=== PATIENT | female | born 1960 | race Caucasian/White ===

== ENCOUNTER 2025-06-22 16:00 | Emergency (ER) | payer OTHER, SELFPAY ==
--- OUTSIDE RECORDS SUMMARY | 2025-05-26 11:15 | XMS_ITS | Encounter Summary ---
Author Organization [email or web address] Address [address], [place] [address] Care Team Providers Care Digital Media Planner Name Role Phone Dilcia Akins APRN, TUBE DRAWER Primary Care Provider + Reason for Visit * Reason Comments Skin Exam Presents for full cherelle dy skin cancer screening Concerns Not concerns but wan ts them removed. Two moles on the chest and one on the left anterior shoulder. Lesions on right breast and left upper back that get irritatedEfudex refilled in January. Used on two spots (one by glabella and one under nose) and both have resolved. Also used on scaly spot on lip. Spot is getting smaller but not resolving. Not tender.Continues with oral minoxidil. Denies adverse effects. Notices increased hair in multiple places. Encounter Details Date Type Department Care Team (Late st Contact Info) Description 05/26/2025 11:15 AM CDT Office Visit [place] [address] [address] [place] [phone] Ghazal Jimenez MD [address] [place], [place] [id number] Skin exam, screening for cancer (Primary Dx); History of nonmelanoma skin cancer; Sun-damaged skin; Seborrheic keratosis; Multiple nevi; Sebaceous hyperplasia; Androgenetic alopecia; Neoplasm of skin (HRC); Inflamed seborrheic keratosis; Actinic cheilitis Social History Tobacco Use Types Packs/Day Years Used Date Smoking Tobacco: Never Passive Smoke Exposure: Never Smokeless Tobacco: Never Alcohol Use Standard Drinks/Week Comments Yes 4 (1 standard drink = 0.6 oz pure alcohol) I have cut back on drinking and simetimes go a week or more PHQ-2 Answer Date Recorded PHQ-2 Score 0 01/25/2025 Comments No Sex and Gender Information Value Date Recorded Sex Assigned at Not on file Legal Sex Female 5:03 AM CDT Gender Identity Not on file Sexual Orientation Not on file Occupation Industry Job Start Date Job End Date Not on file Not on file Not on file Not on file documented as of this encounter Last Filed Vital Signs Vital Sign Reading Time Taken Comments Blood Pressure 143/76 05/26/2025 11:48 AM CDT Pulse 65 05/26/2025 11:48 AM CDT Temperature - - Respiratory Rate - - Oxygen Saturation - - Inhaled Oxygen Concentration - - Weight - - Height - - Body Mass Index - - documented in this encounter Patient Instructions * Patient Instructions* Jeanine Saldaña RN - 05/26/2025 11:15 AM CDT Care Instructions after a shave skin biopsy/removal When do I start changing the bandage on my wound site? Leave the original bandage/dressing in place for 24 to 48 hours. If you develop bleeding from the site, apply firm pressure directly over the bandage, using the heel of your hand, for [address] another bandage on top of the first one - don't keep removing and replacing dressings. NO PEEKING! Notify us if the bleeding still does not stop. How do I change the bandage on my wound? Clean the area once a day with warm soap and water. Gently pat dry the area. After the area has been cleaned and is dry, apply a small amount of petroleum jelly or Aquaphor healing ointment and apply a new bandage. We prefer that you do not use an antibacterial ointment (i.e. bacitracin, Neosporin) as many peopledevelop a hypersensitivity including a rash and even blistering related to these. Is it okay to shower after having a skin biopsy/removal? Showering is okay, but please do not soak in a bathtub, hot tub, or pool. This will slow the healing process and may create infection. When can I stop bandaging my wound? Continue the wound care process until the area is healed. Complete healing usually takes 2-4 weeks.Wounds heal best when kept moist, try not to let the area dry out. During this process you may see a white film develop over your wound and this is part of the normal healing process. Letting them open to air, drying out, and having a scab form actually causes wounds to take longer to heal. If yourskin is getting sensitive to the bandage, use gauze and paper tape. Can I exercise after having a skin biopsy/removal? Avoid exercising for 2 days. What signs or symptoms should I call the dermatology department about? Infection after a biopsy is not likely, but can occur. Mild amounts of redness, bruising, swelling,discomfort and a clear to yellowish to blood-tinged discharge are normal. Signs of Infection include: fever, increasing pain, blood blister, drainage of pus, and extreme heat from the site. Please call the clinic if you experience any of these symptoms. When will I receive my skin biopsy/removal results? Your skin biopsy specimen will be sent to our laboratory for processing. Your clinician will contact you with the results of this pathology report when it is available. Typically you will be contacted 7 to 14 days after your biopsy or procedure. Our pathology services will be listed separately on your bill. If you have further questions about the biopsy process or if you have not received your biopsy results within 2 weeks, please call the clinic. documented in this encounter Progress Notes * Ghazal Jimenez MD - 05/26/2025 11:15 AM CDT Images from the original note were not included. Problem List Dermatology Problems History of squamous cell carcinoma of skin Overview SCCis, mid central chest right of midline, s/p shave 04/24/2017 treated with Efudex History of actinic keratoses Overview Ak right lower leg biopsied 04/15/2024 HPI: Eddie Maurice is a 64 y.o. who was last seen in Dermatology July 2024 Today, the patient presents for / has the following concerns: Chief Complaint Patient presents with Skin Exam Presents for full body skin cancer screening Concerns Not concerns but wants them removed. Two moles on the chest and one on the left anterior shoulder. Lesions on right breast and left upper back that get irritated Efudex refilled in January. Used on two spots (one by glabella and one under nose) and both have resolved. Also used on scaly spot on lip. Spot is getting smaller but not resolving. Not tender. Continues with oral minoxidil. Denies adverse effects. Notices increased hair in multiple places. No questionnaires on file. Past Medical History: History of SCC as above. Actinic keratoses - cryotherapy, Efudex 5% cream. Efudex to face 01/2021. Efudex to upper chest, multiple areas reacted Lichenoid AK biopsied right lower leg posterior 03/2024- s/p efudex BID x 2 weeks ISK - cryotherapy. Milia - cosmetic extraction. Hair loss - oral minoxidil 0.625 mg daily. 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 Rare subtle changes compel clinical consideration of the possibility of ekgq-rfcftzzl-kntrhty pathology. 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 Family History: Mother with history of skin cancer, unspecified subtype. Social History: Spends a lot of time outdoors. Wears sunscreen SPF 70. Tans easily. 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 Medications: The patient has a current medication list which includes the following prescription(s): amoxicillin, b complex vitamins, fluorouracil, hydrocodone- acetaminophen, ibuprofen, minoxidil, and omeprazole. Allergies: The patient is allergic to latex, dyclonine hcl-benzethonium cl, lanolin, levofloxacin, and wound dressings. Physical Examination: General: well-appearing, no acute distress, alert and oriented Skin: Full body skin exam performed including the head, neck, chest, back, abdomen, arms, hands, legs, feet, external genitalia, and buttocks. Please see below for additional problem associated details of physical exam. Declined scalp exam today Findings, Assessment, and Plan: Skin Exam 1. SKIN EXAM, SCREENING FOR CANCER Generalized - skin check done today Counseled regarding sun protection, including sunscreen, limiting ultraviolet exposure, and monthlyself-skin exams / how to monitor the skin for concerning lesions. Advised to RTC as directed for skin cancer screenings, sooner if concerning lesions develop or existing lesions change. 2. HISTORY OF NONMELANOMA SKIN CANCER Generalized - well-healed scar(s) at the site(s) of previous non-melanoma skin cancer with no evidence of any residual or recurrent lesion No evidence of recurrence. Counseled regarding sun protection/sunscreen and avoidance, monthly self-skin exams and how to monitor the skin for concerning lesions. Should RTC if anything recurs at these sites. Recommend at least yearly, or as otherwise directed, Dermatology visits for a skin check, sooner if concerning lesions develop or existing lesions change. 3. SUN-DAMAGED SKIN Generalized - sun-exposed skin with diffuse sun-damage Recommended sunscreen and other sun protective measures 4. SEBORRHEIC KERATOSIS Generalized - well-demarcated, stuck-on keratotic papule(s) Benign, reassurance, no treatment needed. 5. MULTIPLE NEVI Generalized - well-demarcated, symmetric brown macules and/or papules, select examined with dermoscopy - right upper chest and right mid chest, 4 mm skin colored soft papule Reassured that these currently have a benign appearance. Reviewed how to monitor for changes and warning signs or symptoms of skin cancer. Should perform monthly self skin exams and return to clinic to have these reevaluated if they change, grow, or become symptomatic. Discussed management options for removal at patient request including shave removal or excision. Discussed that removal will result in a scar and that the patient would be trading a mole for a scar. Also there is risk of recurrence and the nevus can look atypical if it recurs. Removal may be considered cosmetic and not covered by insurance. Elected not to remove at this time. 6. SEBACEOUS HYPERPLASIA Left Malar Cheek Lateral - left lateral malar cheek, 4 mm yellowish papule (site of previous mole removal per patient) Benign, reassured. 7. ANDROGENETIC ALOPECIA Scalp - declined scalp exam today Discussed etiology and expectations. Continue on oral minoxidil dose of 1.25 mg daily Discussed this needs to be continued to maintain efficacy. Discussed potential adverse effects including hypertrichosis, lightheadedness, fluid retention/ankle swelling, tachycardia, weight gain, andheadaches. Advised to stop the medication and seek care if side effects develop. Blood pressured checked today 8. NEOPLASM OF SKIN (HRC) (3) Left Upper Back Lateral Shave removal (No CPT) Lesion diameter (cm): 0.5 Informed consent: discussed and consent obtained Anesthesia: the lesion was anesthetized in a standard fashion Anesthetic: 1% lidocaine w/ epinephrine 1-100,000 local infiltration Instrument used: flexible razor blade Hemostasis achieved with: electrodesiccation Outcome: patient tolerated procedure well Post-procedure details: wound care instructions given Additional details: Site cleansed with rubbing alcohol prior to anesthetic. Post procedure, plain vaseline and bandage applied. Specimen 1 - Surgical Path, Dermatology Clinical Impression: 5 mm soft pink papule consistent with irritated nevus Right Breast Medial Inferior Shave removal (No CPT) Lesion diameter (cm): 0.3 Informed consent: discussed and consent obtained Anesthesia: the lesion was anesthetized in a standard fashion Anesthetic: 1% lidocaine w/ epinephrine 1-100,000 local infiltration Instrument used: flexible razor blade Hemostasis achieved with: electrodesiccation Outcome: patient tolerated procedure well Post-procedure details: wound care instructions given Additional details: Site cleansed with rubbing alcohol prior to anesthetic. Post procedure, plain vaseline and bandage applied. Specimen 2 - Surgical Path, Dermatology Clinical Impression: 3 mm red papule consistent with irritated angioma Right Breast Superior Shave removal (No CPT) Lesion diameter (cm): 0.5 Informed consent: discussed and consent obtained Anesthesia: the lesion was anesthetized in a standard fashion Anesthetic: 1% lidocaine w/ epinephrine 1-100,000 local infiltration Instrument used: flexible razor blade Hemostasis achieved with: electrodesiccation Outcome: patient tolerated procedure well Post-procedure details: wound care instructions given Additional details: Site cleansed with rubbing alcohol prior to anesthetic. Post procedure, plain vaseline and bandage applied. Specimen 3 - Surgical Path, Dermatology Clinical Impression: 5 mm soft pink papule consistent with irritated nevus 9. INFLAMED SEBORRHEIC KERATOSIS (2) Left Lower Leg - Posterior, Left Lower Leg - Posterior Distal lateral - stuck-on keratotic papules with erythema c/w irritated seborrheic keratoses - treatment offered due to irritation and itch - treated with LN2 for 10 sec x 2 - pt tolerated procedure well - wound care instructions given Destruction of lesion (No CPT) - Left Lower Leg - Posterior, Left Lower Leg - Posterior Distal lateral Destruction method: cryotherapy Informed consent: discussed and consent obtained Lesion destroyed using liquid nitrogen: Yes Cryo cycles: treated with LN2 for 10 sec x 2. Outcome: patient tolerated procedure well with no complications Post-procedure details: wound care instructions given Additional details: Prior to the procedure, we discussed the risks, including but not limited to, of pain, scarring, swelling, blistering, hypopigmentation, potential recurrence, and possible need for further treatment. Verbal consent obtained. 10. ACTINIC CHEILITIS Mid Lower Vermilion Lip - 2 mm subtle scale. No induration or crusting Improving but not resolved with 10 days of fluorouracil/efudex Discussed options for cryotherapy vs repeat fluorouracil/efudex. Pt elected the latter. If this is tender, enlarging or bleeding or not continuing to improve, a biopsy may be needed. Will repeat treatment x 10 days as tolerated. RTC if worsening. Anticipatory guidance provided. Orders Placed This Encounter Surgical Path, Dermatology Shave removal (No CPT) Shave removal (No CPT) Shave removal (No CPT) Destruction of lesion (No CPT) Follow-up: Return to clinic in 12 months for full body skin exam, recheck, sooner for new concerns. See orders section of EMR for additional details of any orders placed at today's visit if applicable. Some pertinent information not listed here may be found in the Patient Instructions part of theencounter, particularly with regard to specific directions for use of medications and/or suggestions for OTC products. ADDENDUM: FINAL DIAGNOSIS Date Value Ref Range Status 05/26/2025 Final A. Skin, Left Upper Back Lateral, shave: - Neurofibroma B. Skin, Right Breast Medial Inferior, shave: - Benign Hemangioma C. Skin, Right Breast Superior, shave: - Neurofibroma Benign, may recur. No further treatment needed. documented in this encounter Plan of Treatment Upcoming Encounters Date Type Department Care Team (Late st Contact Info) Description 05/25/2026 11:30 AM CDT Appointment [place] [address] [place] [phone] Ghazal Jimenez MD [address] [place] [phone] documented as of this encounter Procedures Procedure Name Priority Date/Time Associated Diagnosis Comments DESTRUCTION OF LESION Routine 05/26/2025 11:41 AM CDT Inflamed seborrheic keratosis EPIDERMAL / DERMAL SHAVING Routine 05/26/2025 11:40 AM CDT Neoplasm of skin (HRC) EPIDERMAL / DERMAL SHAVING Routine 05/26/2025 11:39 AM CDT Neoplasm of skin (HRC) EPIDERMAL / DERMAL SHAVING Routine 05/26/2025 11:38 AM CDT Neoplasm of skin (HRC) SURGICAL PATHOLOGY, DERMATOLOGY Routine 05/26/2025 11:38 AM CDT Neoplasm of skin (HRC) documented in this encounter Results * Destruction of lesion (No CPT) (05/26/2025 11:41 AM CDT) Narrative EXTERNAL RESULTS - 05/26/2025 11:41 AM CDT Destruction method: cryotherapy Informed consent: discussed and consent obtained Lesion destroyed using liquid nitrogen: Yes Cryo cycles: treated with LN2 for 10 sec x 2. Outcome: patient tolerated procedure well with no complications Post-procedure details: wound care instructions given Additional details: Prior to the procedure, we discussed the risks, including but not limited to, of pain, scarring, swelling, blistering, hypopigmentation, potential recurrence, and possible need for further treatment. Verbal consent obtained. Result Zack Rowley MD DERM PROCEDURE OR DERABLES Final Result Performing Organization Address [facility] Phone Number EXTERNAL RESULTS * Shave removal (No CPT) (05/26/2025 11:40 AM CDT) Narrative EXTERNAL RESULTS - 05/26/2025 11:40 AM CDT Lesion diameter (cm): 0.5 Informed consent: discussed and consent obtained Anesthesia: the lesion was anesthetized in a standard fashion Anesthetic: 1% lidocaine w/ epinephrine 1-100,000 local infiltration Instrument used: flexible razor blade Hemostasis achieved with: electrodesiccation Outcome: patient tolerated procedure well Post-procedure details: wound care instructions given Additional details: Site cleansed with rubbing alcohol prior to anesthetic. Post procedure, plain vaseline and bandage applied. Result Zack Rowley MD DERM PROCEDURE OR DERABLES Final Result Performing Organization Address [facility] de Phone Number EXTERNAL RESULTS * Shave removal (No CPT) (05/26/2025 11:39 AM CDT) Narrative EXTERNAL RESULTS - 05/26/2025 11:39 AM CDT Lesion diameter (cm): 0.3 Informed consent: discussed and consent obtained Anesthesia: the lesion was anesthetized in a standard fashion Anesthetic: 1% lidocaine w/ epinephrine 1-100,000 local infiltration Instrument used: flexible razor blade Hemostasis achieved with: electrodesiccation Outcome: patient tolerated procedure well Post-procedure details: wound care instructions given Additional details: Site cleansed with rubbing alcohol prior to anesthetic. Post procedure, plain vaseline and bandage applied. Result Zack Rowley MD DERM PROCEDURE OR DERABLES Final Result Performing Organization Address City/State[facility] Phone Number EXTERNAL RESULTS * Shave removal (No CPT) (05/26/2025 11:38 AM CDT) Narrative EXTERNAL RESULTS - 05/26/2025 11:38 AM CDT Lesion diameter (cm): 0.5 Informed consent: discussed and consent obtained Anesthesia: the lesion was anesthetized in a standard fashion Anesthetic: 1% lidocaine w/ epinephrine 1-100,000 local infiltration Instrument used: flexible razor blade Hemostasis achieved with: electrodesiccation Outcome: patient tolerated procedure well Post-procedure details: wound care instructions given Additional details: Site cleansed with rubbing alcohol prior to anesthetic. Post procedure, plain vaseline and bandage applied. us Ghazal Rowley MD DERM PROCEDURE OR DERABLES Final Result Performing Organization Address [facility] Phone Number EXTERNAL RESULTS * Surgical Path, Dermatology (05/26/2025 11:38 AM CDT) Case Report Surgical Pathology Report Case: [id number] Authorizing Provider: Ghazal Jimenez Collected: 05/26/2025 Keyonna Rodriguez MD Ordering Location: [place] [address] Received: 05/26/2025 1310 Dermatology Pathologist: Brice Castillo MD Specimens: A) - Skin, Left Upper Back Lateral B) - Skin, Right Breast Medial Inferior C) - Skin, Right Breast Superior 05/31/2025 3:50 PM CDT [employer] [employer] [facility] 3800 DERMATOLOGY FINAL DIAGNOSIS A. Skin, Left Upper Back Lateral, shave: - Neurofibroma B. Skin, Right Breast Medial Inferior, shave: - Benign Hemangioma C. Skin, Right Breast Superior, shave: - Neurofibroma 05/31/2025 3:50 PM CDT [employer] [facility] 3800 DERMATOLOGY at 1550 CDT Clinical Information A: Clinical Impression: 5 mm soft pink papule consistent with irritated nevus B: Clinical Impression: 3 mm red papule consistent with irritated angioma C: Clinical Impression: 5 mm soft pink papule consistent with irritated nevus 05/31/2025 3:50 PM CDT [employer] [facility] 3800 DERMATOLOGY Microscopic Description Microscopic examination is performed. 05/31/2025 3:50 PM T [facility] 3800 DERMATOLOGY Technical Information A portion of the technical staining was performed at [facility], [address] [place] [address]. 05/31/2025 3:50 PM CDT [facility] 3800 DERMATOLOGY Gross Description A: Received in formalin, labeled with the patient's name and Skin, Left Upper Back Lateral is a 4 x 4 x 3 mm shave of skin. The specimen is marked with purple ink, bisected, and submitted entirely in one cassette. B: Received in formalin, labeled with the patient's name and Skin, Right Breast Medial Inferior is a 2 x 2 x 1 mm shave of skin. The specimen is marked with blue ink and submitted entirely in one cassette. C: Received in formalin, labeled with the patient's name and Skin, Right Breast Superior is a 3 x 3 x 1 mm shave of skin. The specimen is marked with black ink and submitted entirely in one cassette. TV 05/31/2025 3:50 PM T [facility] 3800 DERMATOLOGY Embedded Images 05/31/2025 3:50 PM T [facility] 3800 DERMATOLOGY Skin (Skin) 05/26/2025 11:3 8 AM CDT 05/26/2025 1:10 PM CDT Comment:Clinical Impression: 5 mm soft pink papule consistent with irritated nevus Skin structure (body structure) (Skin) 05/26/2025 11:39 AM CDT 05/26/2025 1:10 PM CDT Comment:Clinical Impression: 3 mm red papule consistent with irritated angioma Skin structure (body structure) (Skin) 05/26/2025 11:40 AM CDT 05/26/2025 1:10 PM CDT Comment:Clinical Impression: 5 mm soft pink papule consistent with irritated nevus Ghazal Rowley MD LAB PATHOLOGY F inal Result [facility] [employer] [facility] 3800 DERMATOLOGY [address] [place] [address], [facility] documented in this encounter Visit Diagnoses Diagnosis Skin exam, screening for cancer- Primary Screening for malignant neoplasm of the skin History of nonmelanoma skin cancer Personal history of other malignant neoplasm of skin Sun-damaged skin Other chronic dermatitis due to solar radiation Seborrheic keratosis Other seborrheic keratosis Multiple nevi Benign neoplasm of skin, site unspecified Sebaceous hyperplasia Other specified disease of sebaceous glands Androgenetic alopecia Other alopecia Neoplasm of skin (HRC) Neoplasm of unspecified nature of bone, soft tissue, and skin Inflamed seborrheic keratosis Actinic cheilitis Acute dermatitis due to solar radiation documented in this encounter Care Teams Digital Media Planner Relationship Specialty Start Date End Date Dilcia Akins, [employer] RET[employer]OFIT INSTALLER, TUBE DRAWER [address] [place] [address] PCP - General Nurse Practitioner 08/18/18 documented as of this encounter
--- OUTSIDE RECORDS SUMMARY | 2025-06-12 19:10 | XMS_ITS | Encounter Summary ---
Author Organization [facility] Address [address], [place] [address] Care Team Providers Care Director Of Sustainability Programs Name Role Phone Dilcia Akins APRN, WARP COILER Primary Care Provider + Reason for Visit * Reason Comments QUESTIONS, GENERAL Entered automaticall y based on patient selection in [employer]. Encounter Details Date Type Department Care Team (Late st Contact Info) Description 06/12/2025 7:10 PM CDT E-Visit [address] [address] Dilcia Akins, ALLAN, WARP COILER [address] [place] [id number] Chief Comp: QUESTIONS, GENERAL Social History Tobacco Use Types Packs/Day Years [...] on file documented as of this encounter Plan of Treatment Upcoming Encounters Date Type Department Care Team (Late st Contact Info) Description 05/25/2026 11:30 AM CDT Appointment [facility] [address] Derm[address]ology [address] [place] [address] Ghazal Jimenez MD [address] [place] [address] documented as of this encounter Visit Diagnoses Not on filedocumented in this encounter Care Teams Director Of Sustainability Programs Relationship Specialty Start Date End Date Dilcia Akins, COOKER MEAL, WARP COILER [address] [place] [id number] PCP - General Nurse Practitioner 08/18/18 documented as of this encounter
[2025-06-22 16:07] VITALS: BP 178/94; PULSE 75; RESP 16; TEMP 36.4; O2SAT 98; BMI 19.9
--- NOTE | 2025-06-22 16:43 | ED_ITS ---
HPI - Back Pain/Injury General Date Seen: 06/22/25 Chief Complaint: Back Injury/Pain Stated Complaint: Back Pain Time Seen by Provider: 06/22/25 16:08 Source: patient Mode of arrival: EMS Limitations: no limitations History of Present Illness HPI Narrative: Patient is a 64-year-old female presenting to the emergency department for back pain. Has a history of mild herniated discs and chronic back discomfort. States she was outside and bending down to feed the animals. When she stood back up she felt her back go out. She has pain throughout her mid back all across her back at about the T11 region. Has never had back pain this bad before. States it was so bad that she was stuck in bed all day. This happened around 09:00. She states the pain is tolerable when she lays down or stands up but with any movement she has worsening pain. She was unable to get out of bed due to the pain and did not know what to do so she called EMS. When EMS arrived they gave her a dose of Toradol IV. This made her feel much better she states at rest now the pain is a 1/10. Is able to sit up in bed but does have quite a bit of pain with that. Does state the pain is still better than prior to the Toradol. No other injuries noted. Denies saddle anesthesia, fevers, IV drug use, urinary or bowel incontinence, urinary retention. Related Data Home Medications ?Medication ?Instructions ?Recorded ?Confirmed minoxidil .ROUTE 06/22/25 Allergies Allergy/AdvReac Type Severity Reaction Status Date / Time No Known Drug Allergies Allergy Verified 06/22/25 16:07 Review of Systems Narrative: Pertinent systems reviewed and were negative unless stated in HPI PFSH PFSH Social History Smoking Status: Never smoker How often do you have a drink containing alcohol: 4 or more times a week How many standard drinks containing alcohol do you have on a typical day: 1 or 2 How often do you have six or more drinks on one occasion: Never AUDIT-C Alcohol total score: 4 Non-prescribed substance use: denies use Exam Narrative: Exam Narrative: Const: Well-nourished, Well-developed, in monitor distress Eyes: PERRL, no conjunctival injection, and symmetrical lids HENT: Atraumatic external nose and ears. Moist mucous membranes. Neck: Symmetric, trachea midline, No thyromegaly. CVS: RRR, No murmurs or gallops. Peripheral pulses 2+ and equal in all extremities RESP: Unlabored respiratory effort. Clear to auscultation bilaterally. GI: Nontender/Nondistended, No rebound or guarding. MSK:Extremities w/o deformity, pain if she lifts her lower extremities or tries to move her back. Some tenderness noted across her back around the T11 worse on the left side. Skin: Warm, Dry. No rashes or lesions. Neuro: Normal Muscle tone, No focal neurological deficits. Psych: Awake, Alert, & Oriented x3. Appropriate mood and affect. Const: Vital Signs, click to edit/add: Vital Signs - 24 hr 06/22/25 16:07 Temperature 97.5 F L Pulse Rate [Pulse Oximeter] 75 Respiratory Rate 16 Blood Pressure [Ri ght Upper Arm] 178/94 H Pulse Oximetry 98 Oxygen Delivery Me thod Room Air Course Vital Signs Vital signs: Initial Vital Signs Temperature 97.5 F L 06/22/25 16:07 Temperature Source Temporal Artery Scan 06/22/25 16:07 Pulse Rate 75 06/22/25 16:07 Respiratory Rate 16 06/22/25 16:07 Blood Pressure 178/94 H 06/22/25 16:07 Blood Pressure Mean 122 H 06/22/25 16:07 Blood Pressure Position Supine 06/22/25 16:07 Pulse Oximetry 98 06/22/25 16:07 Oxygen Delivery Method Room Air 06/22/25 16:07 Vital Signs Temperature 97.5 F L 06/22/25 16:07 Pulse Rate 75 06/22/25 16:07 Respiratory Rate 16 06/22/25 16:07 Blood Pressure 178/94 H 06/22/25 16:07 Pulse Oximetry 98 06/22/25 16:07 Oxygen Delivery Method Room Air 06/22/25 16:07 Temperature 97.5 F L 06/22/25 16:07 Pulse Rate 75 06/22/25 16:07 Respiratory Rate 16 06/22/25 16:07 Blood Pressure 178/94 H 06/22/25 16:07 Pulse Oximetry 98 06/22/25 16:07 Oxygen Delivery Method Room Air 06/22/25 16:07 MDM - Back Pain/Injury MDM Narrative Medical decision making narrative: Patient is 64-year-old female presenting for back pain. No red flag symptoms of cauda equina. The pain started with movement in seems most likely musculoskeletal but with her initially description there was some thought that could be a kidney stone. After shared decision-making she does not think it is a kidney stone is not want a CT scan. This seems reasonable. Also declined x- rays at this time as she states she is very active and does not believe she got compression fracture. She believes she strained a muscle. She is doing much better after the Toradol. I did offer morphine for pain control but she declined. She feels comfortable going home and I will prescribe her Toradol, Flexeril, prednisone for her back pain. She is agreeable to this plan. Discharge Plan Discharge Clinical Impression: Strain of lumbar region Qualifiers: Encounter type: initial encounter Qualified Code(s): S39.012A - Strain of muscle, fascia and tendon of lower back, initial encounter Patient Disposition: Home, Self-Care Condition: Stable Instructions: Low Back Strain (ED), P.R.I.C.E. Treatment (ED) Additional Instructions: Take the Flexeril, Toradol, prednisone for your back pain. While using Toradol do not use other NSAIDs such as naproxen or ibuprofen. You can also take Tylenol for your pain. Recommend following up with your primary care provider if back pain is not improving. If you developed urinary retention or numbness of your butt in the region that would be sitting on a saddle please return for re-evaluation Prescriptions: No Action minoxidil .ROUTE Stand Alone Forms: [employer] Info Instructions
--- OUTSIDE RECORDS SUMMARY | 2025-06-22 17:00 | XMS_ITS | Clinical Summary ---
Author Organization [facility] Address [address] [place] [address] Care Team Providers Care Platinum And Palladium Kettle Tender Name Role Phone No Ref-Primary, Physician Primary Care Provider Allergies Active Allergy Reactions Criticality Noted Date Comments Adhesive Tape Rash Low 10/02/2006 Most bandaids are okay- paper tape is okay also- other tapes she has blisters from Skin was red and blistered Dyclonine Hcl-Benzethonium Cl Itching,Rash Low 02/02/2013 Lanolin Itching,Rash 10/02/2006 Latex 02/02/2013 Levofloxacin Rash Low 12/29/2007 PN: LW Reaction: rash,dizziness PN: LW Reaction: rash,dizziness No Clinical Screening - See Comments 12/09/2008 PN: LW Reaction: use paper tape only (blisters from other Medications Ibuprofen (ADVIL PO) Active oseltamivir (TAMIFLU) 75 MG capsuleIndicati ons:Influenza A Take 1 capsule (75 mg) by mouth 2 times daily for 5 days 10 capsule 0 4 Active tobramycin (TOBREX) 0.3 % ophthalmic solutionIndicat ions:Hordeolum externum of right upper eyelid Apply 1 drop to eye every 4 hours 1 Bottle 0 Active Additional Information Patient not taking.Reported on 07/17/2020 cephALEXin (KEFLEX) 500 MG capsuleIndicati ons:Hordeolum externum of right upper eyelid Take 1 capsule (500 mg) by mouth 3 times daily 30 capsule 0 Active Additional Information Patient not taking.Reported on 07/17/2020 methylPREDNISol one (MEDROL DOSEPAK) 4 MG tablet therapy packIndications :Rash Follow Package Directions 21 tablet 0 Active Additional Information Patient not taking.Reported on 04/22/2024 minoxidil (LONITEN) 2.5 MG tablet Take one-fourth of a tablet daily for hair loss 4 Active Active Problems No known active problems Social History Tobacco Use Types Packs/Day Years Used Date Smoking Tobacco: Never Smokeless Tobacco: Never Tobacco Cessation:Counseling Given: No Alcohol Use Standard Drinks/Week Comments Not Asked 0 (1 standard drink = 0.6 oz pur e alcohol) Adolescent Education Answer Date Record ed Getting School Help Needed Not on file 04/22 Comments No Sex and Gender Information Value Date Recorded Sex Assigned at Not on file Legal Sex Female 3:21 AM POCKET CREASER Gender Identity Not on file Sexual Orientation Not on file Last Filed Vital Signs Vital Sign Reading Time Taken Comments Blood Pressure 137/86 04/22/2024 12:48 PM CDT Pulse 80 04/22/2024 12:48 PM CDT Temperature 36.4 C (97.6 F) 04/22/2024 12:48 PM CDT Respiratory Rate 16 07/17/2020 4:11 PM CDT Oxygen Saturation 97% 04/22/2024 12:48 PM CDT Inhaled Oxygen Concentration - - Weight 74.8 kg (165 lb) 07/17/2020 4:11 PM CDT Height 177.8 cm (5' 10) 06/29/2020 9:09 AM CDT Body Mass Index 23.68 06/29/2020 9:09 AM CDT Plan of Treatment Health Maintenance Due Date Last Done Comments ADVANCE CARE PLANNING 1960 ANNUAL REVIEW OF HM ORDERS 1960 FIT 1960 FLEX SIG 1960 sDNA (Cologuard) 1960 COLONOSCOPY 1970 HIV SCREENING 1975 HEPATITIS C SCREENING 1978 DTAP/TDAP/TD VACCINE (1 - Tdap) 1985 LIPID 2000 PNEUMOCOCCAL VACCINE 50+ YEARS (1 of 1 - PCV) 2010 ZOSTER VACCINE (1 of 2) 2010 YEARLY PREVENTIVE VISIT 06/25/2020 06/25/2019 PAP 06/25/2022 06/25/2019 DIABETES SCREENING 11/05/2022 11/05/2019 COVID-19 VACCINE ( season) 2024 12/14/2021, 03/21/2021, 03/02/2021 PHQ-2 (once per calendar year) 2024 MAMMO SCREENING 12/06/2024 12/06/2022, 01/0 05/2023, 08/15/2021, Additional history exists INFLUENZA VACCINE (#1) 2025 COLORECTAL CANCER SCREENING 11/05/2026 CT COLONOGRAPHY 11/05/2026 11/05/2021 RSV VACCINE (1 - 1-dose 75+ series) 2035 HPV VACCINE Aged Out No longer eligi ble based on patient's age to complete this topic MENINGITIS VACCINE Aged Out No longer eligible based on patient's age to complete this topic Procedures Procedure Name Priority Date/Time Associated Diagnosis Comments BASIC METABOLIC PANEL Routine 11/05/2019 4:38 PM POCKET CREASER Cough HC MAMMOGRAM, DIAGNOSTIC BILATERAL Routine 06/23/2007 10:16 AM CDT from Last 3 Months or Most Recently Relevant to Health Maintenance Results * (ABNORMAL) Basic metabolic panel (11/05/2019 4:38 PM POCKET CREASER) Sodium 139 133 - 144 mmol/L 11/05/2019 5:04 PM [facility] Potassium 4.6 3.4 - 5.3 mmol/L 11/05/2019 5:04 PM [facility] Chloride 106 94 - 109 mmol/L 11/05/2019 5:04 PM [facility] Carbon Dioxide 31 20 - 32 mmol/L 11/05/2019 5:09 PM [facility] Anion Gap 2(L) 3 - 14 mmol/L 11/05/2019 5:09 PM [facility] Glucose 103(H) 70 - 99 mg/dL 11/05/2019 5:09 PM [facility] Urea Nitrogen 16 7 - 30 mg/dL 11/05/2019 5:09 PM [facility] Creatinine 0.85 0.52 - 1.04 mg/dL 11/05/2019 5:09 PM POCKET CREASER [facility] GFR Estimate 75 >60 mL/min/{1 .73_m2} 11/05/2019 5:09 PM POCKET CREASER [facility] Comment: Non GFR Calc Starting 11/17/2018, serum creatinine based estimated GFR (eGFR) will be calculated using the Chronic Kidney Disease Epidemiology Collaboration (CKD-EPI) equation. GFR Estimate If Black 87 >60 mL/min/{1 .73_m2} 11/05/2019 5:09 PM POCKET CREASER [facility] Comment: GFR Calc Starting 11/17/2018, serum creatinine based estimated GFR (eGFR) will be calculated using the Chronic Kidney Disease Epidemiology Collaboration (CKD-EPI) equation. 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 This represents her first mammographic followup after surgery. She has no current clinical symptoms. FINDINGS: Standard and implant displaced mammographic views were obtained. Bilateral silicone subglandular implants remain in place and these implants partially obscure the underlying parenchyma which is heterogeneously dense. There is post lumpectomy scarring in the lateral right breast. Biopsy marker in the right medial breast marking the site of a previous benign ultrasound guided biopsy. A focal asymmetric density is seen in the medial right breast on the implant displaced CC view. This was further evaluated with spot compression technique which shows no persistent mammographic abnormality. The appearance is unchanged compared with previous mammograms dating back to 04/28/2003. The left breast is unremarkable and unchanged. There is no mammographic finding for malignancy in either breast. Targeted ultrasound of the medial and inferior right breast was performed and I personally scanned the patient. No sonographic abnormality is identified. IMPRESSION: ACR BI-RADS category 2, benign findings. 1. Postoperative changes in the right breast. No evidence for residual or recurrent malignancy. 2. Recommend 6 month followup right diagnostic mammogram since this is a new baseline after surgery. Clarissa Schmidt MD SPECIAL IMAGING STUDIES Edite d from Last 3 Months or Most Recently Relevant to Health Maintenance Insurance [employer] Care Teams Platinum And Palladium Kettle Tender Relationship Specialty Start Date End Date No Ref-Primary, Physician PCP - General 11/05/19
--- OUTSIDE RECORDS SUMMARY | 2025-06-22 17:00 | XMS_ITS | Encounter Summary ---
Author Organization [facility] Address [address] [address] Care Team Providers Care Web Master Name Role Phone Dilcia Akins APRN, COMMUNICATIONS SUPERVISOR Primary Care Provider + Encounter Details Date Type Department Care Team (Late st Contact Info) Description 05/20/2025 Results Follow-Up Endoscopy at [facility] at [address] [place] [address] Jinny Nelson MD [address] [place] [address] [phone] [place] [address] Social History Tobacco Use Types Packs/Day Years [...] on file documented as of this encounter Progress Notes * Jinny Nelson MD - 05/20/2025 12:12 PM CDT Colonoscopy 2 yrs, f/u polyps With propofol documented in this encounter Plan of Treatment Upcoming Encounters Date Type Department Care Team (Late st Contact Info) Description 05/25/2026 11:30 AM CDT Appointment [place] [address] [place] [id number] Ghazal Jimenez MD [address] [place] [address] documented as of this encounter Visit Diagnoses Not on filedocumented in this encounter Care Teams Web Master Relationship Specialty Start Date End Date Dilcia Akins, ALLAN, COMMUNICATIONS SUPERVISOR [address] [facility] [address] PCP - General Nurse Practitioner 08/18/18 documented as of this encounter
--- OUTSIDE RECORDS SUMMARY | 2025-06-22 17:00 | XMS_ITS | Encounter Summary ---
Author Organization [facility] Address [address], [place] [address] Care Team Providers Care Organization Development Consultant Name Role Phone Dilcia Akins APRN, GLASS FINISHER Primary Care Provider + Encounter Details Date Type Department Care Team (Late st Contact Info) Description 05/31/2025 Results Follow-Up [place] [address] [place] [phone] [place] [address] [place] [address] [phone] Social History Tobacco Use Types Packs/Day Years [...] Encounters Date Type Department Care Team (Late Contact Info) Description 05/25/2026 11:30 AM CDT Appointment [place] [address] [place] [phone] Ghazal Jimenez MD [address] [place], [place] [phone] documented as of this encounter Visit Diagnoses Not on filedocumented in this encounter Care Teams Organization Development Consultant Relationship Specialty Start Date End Date Dilcia Akins, RISK AND INSURANCE CONSULTANT, GLASS FINISHER [address] [place] [address] PCP - General Nurse Practitioner 08/18/18 documented as of this encounter
--- OUTSIDE RECORDS SUMMARY | 2025-06-22 17:00 | XMS_ITS | Encounter Summary ---
Author Organization [email or web address] Address [address], [place] [address] Care Team Providers Care Cashier Manager Name Role Phone Dilcia Akins APRN, OPERATIONS AGENT Primary Care Provider + Reason for Visit * Reason Onset Date Comments Refill minoxidil (LONIT EN) 2.5 MG tablet [Pharmacy Med Name: MINOXIDIL 2.5MG TABLETS] FYI 06/09/2025 Unable to Refill Medication 06/09/2025 Encounter Details Date Type Department Care Team (Late st Contact Info) Description 06/09/2025 Refill [place] [address] [address] [place], [place] [phone] Ghazal Nichole MD [address] [place], [place] [phone] Refill (minoxidil (LONITEN) 2.5 MG tablet [Pharmacy Med Name: MINOXIDIL 2.5MG TABLETS]); FYI; Unable to Refill Medication Social History Tobacco Use Types Packs/Day Years [...] on file documented as of this encounter Nursing Notes * Yadi Metz RN - 06/09/2025 8:13 AM CDT Refill Request Denied: Requested Prescriptions Pending Prescriptions Disp Refills minoxidil (LONITEN) 2.5 MG tablet [Pharmacy Med Name: MINOXIDIL 2.5MG TABLETS] 48 Tablet Sig: TAKE 1/2 TABLET BY MOUTH DAILY FOR HAIR LOSS Action taken by Triage: Refill denied per protocol. Reason not refillable: medication was sent on 05/26/25 with 3 refills. Last Visit Maximum visits displayed: 1 Date Type Department Provider Description 05/26/2025 Office Visit [place] [address] [address] Ghazal Rowley MD Skin exam, screening for cancer (Primary Dx); History of no... Follow-up interval per last visit note: 12 months Date(s) of failed/cancelled Derm appt: n/a Future Dermatology Appointments Provider Department Center 05/25/2026 11:30 AM Ghazal Nichole MD [place] [address] Derm[address] PN [id number] * Lynngallitoquyen Claudinegabrielasuze Xrwcomm - 06/09/2025 3:35 AM CDT minoxidil (LONITEN) 2.5 MG tablet [Pharmacy Med Name: MINOXIDIL 2.5MG TABLETS] Medication started: 08/18/2023 Last ordered by GHAZAL NICHOLE A: 05/26/2025 (14 days ago) QTY: 48, Refills: 3, Sig: take one-half of a tablet daily for hair loss (changed) -> Unable to determine if sig has changed, review required. -> Refill x 12 months (until due for an office visit) -> Calculate the quantity and number of refills manually. Last qualifying visit: 05/26/2025 (with GHAZAL NICHOLE) Next scheduled visit: 05/25/2026 (with GHAZAL NICHOLE) [employer] Emb[employer]ded Refills, Reference: [id number], 06/09/2025 3:35:46 AM CDT, Pool: [facility] ([id number]) documented in this encounter Plan of Treatment Upcoming Encounters Date Type Department Care Team (Late st Contact Info) Description 05/25/2026 11:30 AM CDT Appointment [place] [address] [place] [phone] Ghazal Nichole MD [address] [place] [address] documented as of this encounter Visit Diagnoses Not on filedocumented in this encounter Care Teams Cashier Manager Relationship Specialty Start Date End Date Dilcia Akins, MAID HOUSEKEEPER, OPERATIONS AGENT [address] [place], [place] [id number] PCP - General Nurse Practitioner 08/18/18 documented as of this encounter
--- OUTSIDE RECORDS SUMMARY | 2025-06-22 17:01 | XMS_ITS | Encounter Summary ---
Author Organization [employer] Address [address], [place] [address] Care Team Providers Care Erector Operator Name Role Phone Dilcia Akins APRN, RUBBER TUBING SPLICER Primary Care Provider + Reason for Visit * Reason Comments VISION, PROBLEM Vision changes Referral Encounter Details Date Type Department Care Team (Late st Contact Info) Description 04/06/2025 Telephone [facility] [address] Op[address]mology [address] [place] [address] Self-Referral, Patient, [place] [address] VISION, PROBLEM (Vision changes /); Referral Social History Tobacco Use Types Packs/Day Years [...] as of this encounter Nursing Notes * Noemi Cavanaugh - 04/07/2025 7:54 AM CDT LMX1- pt has referral for Vision changes - ok to book con2 today for pt if she calls back * Tamika Perales - 04/06/2025 3:56 PM CDT Pt has an emergent referral for Vision changes and would like to schedule. documented in this encounter Plan of Treatment Upcoming Encounters Date Type Department Care Team (Late st Contact Info) Description 05/25/2026 11:30 AM CDT Appointment [place] [address] [place] [phone] Ghazal Jimenez MD [address] [place] [address] documented as of this encounter Visit Diagnoses Not on filedocumented in this encounter Care Teams Erector Operator Relationship Specialty Start Date End Date Dilcia Akins, CLINICAL APPLICATIONS SPECIALIST, RUBBER TUBING SPLICER [address] [place] [address] PCP - General Nurse Practitioner 08/18/18 documented as of this encounter
--- OUTSIDE RECORDS SUMMARY | 2025-06-22 17:01 | XMS_ITS | Clinical Summary ---
Author Organization [facility] Address [address] [address] Care Team Providers Care Flaker Tender Name Role Phone Dilcia Akins APRN, [employer] Primary Care Provider + Source Comments You are receiving this document as you are listed as the primary care provider,follow-up provider, or the patient has been referred to you for consultation.This is in compliance with the Medicare and[facility] EHR Incentive Program,which states Providers who transition their patient to another setting of careor provider of care or refers their patient to another provider of care shouldprovide summary care record for each transition of care or referral. [employer] Allergies Active Allergy Reactions Criticality Noted Date Comments Dyclonine Hcl-Benzethonium Cl Itching 02/02/2013 Lanolin 12/09/2008 Latex 02/02/2013 Levofloxacin 12/29/2007 PN: LW Reaction: rash,dizziness Wound Dressings 12/09/2008 PN: LW Reaction: use paper tape only (blisters from other Medications B Complex Vitamins (VITAMIN B COMPLEX OR) Take 1 tablet by mouth daily (every 24 hours). 9 Active Ibuprofen (ADVIL) 200 MG capsule Take 1 Capsule by mouth every 6 hours as needed for Pain. Active omeprazole (PRILOSEC) 10 MG capsule Take 1 Capsule (10 mg) by mouth daily. Take 1 hour before a meal. Active fluorouracil (EFUDEX) 5 % cream Apply topically to face twice a day for up to 2 weeks as tolerated. Wash hands after applying. Avoid sun. 40 g 1 5 Active amoxicillin (AMOXIL) 500 MG capsule Take 1 Capsule (500 mg) by mouth three times a day. 5 Active HYDROcodone-ryanne taminophen (NORCO) 5-325 MG tablet Take 1 Tablet by mouth every 6 hours as needed. 5 Active minoxidil (LONITEN) 2.5 MG tablet Take one-half of a tablet daily for hair loss 48 Tablet 3 5 Active minoxidil (LONITEN) 2.5 MG tablet Take one-half of a tablet daily for hair loss 48 Tablet 3 4 05/26/20 25 Discontinu ed(*Med change OR same med OR reorder, new dose/direc tions) Active Problems Problem Noted Date Diagnosed Date History of actinic keratoses 04/29/2024 Overview (04/29/2024): Ak right lower leg biopsied 04/15/2024 Collagenous colitis 01/22/2022 History of colonic polyps 01/22/2022 Overview (08/31/2024): Next colonoscopy 01/2025 - The next procedure should start with an UGI endoscope - Next procedure with propofol by anesthesia. IMO Replacements 08/31/2024 H/O diverticulitis of colon 09/24/2021 Posttraumatic stress disorder 09/03/2021 Overview (09/03/2021): Sees a therapist History of squamous cell carcinoma of skin 10/16 Overview (04/14/2024): SCCis, mid central chest right of midline, s/p shave 04/24/2017 treated with Efudex Liver lesion, left lobe 12/08/2015 Solitary pulmonary nodule 12/06/2015 Overview (07/05/2016): 8 mm Left upper lung. On CT chest 02/26/2013. Stable on 11/30/2015 CXR. History of breast cancer 02/26/2013 Overview (07/23/2017): History of breast cancer 2007 right breast lumpectomy, radiation Resolved Problems Problem Noted Date Diagnosed Date Resolved Date High blood pressure 12/28/2020 09/03/20 21 Encounters Date Type Department Care Team Description 06/12/2025 7:10 PM CDT E-Visit [facility] [address] [place] [address] Dilcia Akins, CENTER REP, [employer] Chief Comp: QUESTIONS, GENERAL 06/09/2025 Refill [place] [address] [place] [address] Ghazal Jimenez MD Refill (minoxidil (LONITEN) 2.5 MG tablet [Pharmacy Med Name: MINOXIDIL 2.5MG TABLETS]); FYI; Unable to Refill Medication 05/31/2025 Results Follow-Up [address] [address] Ghazal Jimenez MD 05/26/2025 11:15 AM CDT Office Visit [address] [address] Ghazal Jimenez MD Skin exam, screening for cancer (Primary Dx); History of nonmelanoma skin cancer; Sun-damaged skin; Seborrheic keratosis; Multiple nevi; Sebaceous hyperplasia; Androgenetic alopecia; Neoplasm of skin (HRC); Inflamed seborrheic keratosis; Actinic cheilitis 05/20/2025 Results Follow-Up Endoscopy at [facility] at [address] [place] [address] Jinny Nelson MD 05/04/2025 7:50 PM CDT E-Visit [facility] [address] [place] [address] Dilcia Akins, ALLAN, [employer]EE Dx: Polyp of colon, unspecified part of colon, unspecified type (Primary Dx) 04/28/2025 12:[address] [facility] [address] [place] [address] [place] [address] Dilcia Akins, ALLAN, [employer] Vision changes 04/28/2025 12:[address] PM [address] Procedure [facility] [address] [place] [address] [place] [address] Dilcia Akins, ALLAN, [employer]EE Vision changes 04/28/2025 11:30 AM CDT [address] [facility] [address] [address] [place] [address] [place] [phone] Dilcia Akins, ALLAN, [employer]EE Vision changes 04/20/2025 10:28 AM CDT Anesthesia Event Endoscopy at [facility] at [address] [place] [address] Howie Cali MD 04/20/2025 9:12 AM CDT - 04/20/2025 11:59 PM CDT Hospital Encounter Endoscopy at [facility] at [address] [place] [address] Jinny Nelson MD Bertram, Lawrence J, MD Polyp of colon, unspecified part of colon, unspecified type Discharge Disposition: Home 04/11/2025 Notes/Orders [facility] at [address] [place] [address] Jinny Nelson MD 04/06/2025 11:20 AM CDT Telemedicine [address] [address] Dilcia Akins, ALLAN, [employer] Vision changes (Primary Dx); Claustrophobia (HRC); Subcortical microvascular ischemic occlusive disease 04/06/2025 Telephone [facility] [address] Ophthalmology [address] [facility] [place] [address] Self-Referral, Patient, MD VISION, PROBLEM (Vision changes /); Referral 04/01/2025 2:20 PM CDT E-Visit [address] [address] Dilcia Akins, CENTER REP, [employer] Chief Comp: QUESTIONS, GENERAL from Last 3 Months Immunizations Immunization Administration Dates Next Due Pfizer Monovalent 12+ Purple Top 12/14/2021,03/02,03/02/2021 Family History Medical History Relation Name Comments Cancer Father Freddy johnson of pancrea tic cancer Cancer, Pancreatic Father Freddy johnson Stroke Mother Estefany Paiz Diabetes Brother 1 Freddy Johnson Diabetes Brother 2 Freddy Johnson Anesthesia Reaction Sister Ashanti Gustafson nausea Cancer Sister Ashanti Ray Cancer, Breast Sister Ashanti Ray 54 Relation Name Status Comments Father Freddy johnson Mother Estefany Paiz Brother 1 Freddy Johnson Brother 2 Freddy Johnson Alive Sister Ashanti Gustafson Social History Tobacco Use Types Packs/Day Years Used Date Smoking Tobacco: Never Passive Smoke Exposure: Never Smokeless Tobacco: Never Tobacco Cessation:Counseling Given: Not Answered Alcohol Use Standard Drinks/Week Comments Yes 4 [...] file Not on file Not on file Last Filed Vital Signs Vital Sign Reading Time Taken Comments Blood Pressure 143/76 05/26/2025 11:48 AM CDT Pulse 65 05/26/2025 11:48 AM CDT Temperature 37 C (98.6 F) 04/20/2025 11:26 AM CDT Respiratory Rate 16 04/20/2025 11:30 AM CDT Oxygen Saturation 100% 04/20/2025 11:30 AM CDT Inhaled Oxygen Concentration - - Weight 64.9 kg (143 lb) 04/20/2025 9:22 AM CDT Height 180.3 cm (5' 11) 04/20/2025 9:22 AM CDT Body Mass Index 19.94 04/20/2025 9:22 AM CDT Plan of Treatment Upcoming Encounters Date Type Department Care Team (Late st Contact Info) Description 05/25/2026 11:30 AM CDT Appointment [facility] [address] Dermatology [address] [place] [address] Ghazal Jimenez MD [address] [place] [address] Health Maintenance Due Date Last Done Comments DTaP/Tdap/Td Vaccine (1 - Tdap) 1979 Pneumococcal Vaccine 50+ Yrs (1 of 1 - PCV) 2010 Zoster/Shingles Vaccine (1 of 2) 2010 Adult Preventive Visit 06/25/2020 06/25/2019 Cervical Cancer Screening 06/25/20242018, 06/25/2019, 02/15/2014 Cholesterol 06/25/2024 06/25/2019 COVID-19 Vaccine ( season) 2024 12/14/2021, 03/21/2021, 03/02/2021 Mammogram 05/26/2025 05/26/2024, 05/2023, 12/06/2022, Additional history exists Influenza Vaccine (#1) 2025 Colonoscopy 04/20/2027 04/20/2025, 01/01, 07/13/2015 (Completed) RSV Vaccine (1 - 1-dose 75+ series) 2035 HIV Screening (Preventive Services) Completed 06/25/2019 (Completed) Hep C Screening (Preventive Services) Completed 06/25/2019 (Completed) HepA Vaccine Aged Out No longer eligi ble based on patient's age to complete this topic HepB Vaccine Aged Out No longer eligi ble based on patient's age to complete this topic Hib Vaccine Aged Out No longer eligi ble based on patient's age to complete this topic IPV (Polio) Vaccine Aged Out No longe r eligible based on patient's age to complete this topic MCV4 Vaccine Aged Out No longer eligi ble based on patient's age to complete this topic Meningococcal B Vaccine Aged Out No l onger eligible based on patient's age to complete [...] 11:38 AM CDT Neoplasm of skin (HRC) MR ANGIO NECK W/WO IV CONT STAT 04/28/2025 12:07 PM CDT Vision changes MR BRAIN W/WO IV CONT STAT 04/28/2025 12:06 PM CDT Vision changes MR ANGIO HEAD WO IV CONT STAT 04/28/2025 11:19 AM CDT Vision changes SURGICAL PATHOLOGY, GI Routine 04/20/2025 11:21 AM CDT Polyp of colon, unspecified part of colon, unspecified type COLONOSCOPY SCREENING Routine 04/20/2025 10:29 AM CDT Polyp of colon, unspecified part of colon, unspecified type MM MAMMOGRAM SCREENING BILAT W IMPLANTS W 3D YOUSUF W CAD Routine 05/26/2024 10:46 AM CDT CYTOLOGY (PAP) Routine 06/25/2019 8:21 AM CDT Well adult exam LIPID PANEL & DIRECT LDL (IF NEEDED) Routine 06/25/2019 8:14 AM CDT Well adult exam from Last 3 Months or Most Recently Relevant to Health Maintenance Results * Destruction of lesion (No CPT) [...] need for further treatment. Verbal consent obtained. us Ghazal Rowley MD DERM PROCEDURE OR DERABLES Final Result Performing Organization Address [facility] de Phone Number EXTERNAL RESULTS * Shave removal (No CPT) (05/26/2025 11:40 AM CDT) Only the most recent of3 resultswithin the time period is included. Narrative EXTERNAL RESULTS - 05/26/2025 11:40 AM [...] OR DERABLES Final Result Performing Organization Address [facility] de Phone Number EXTERNAL RESULTS * Surgical Path, Dermatology (05/26/2025 11:38 AM CDT) Case Report Surgical Pathology Report Case: [id number] Authorizing Provider: Ghazal Jimenez Collected: 05/26/2025 Keyonna Rodriguez MD Ordering Location: [place] [address] Received: 05/26/2025 1310 Dermatology Pathologist: Brice Castillo MD Specimens: A) - Skin, Left Upper Back Lateral B) - Skin, Right Breast Medial Inferior C) - Skin, Right Breast Superior 05/31/2025 3:50 PM CDT [facility] DERMATOLOGY FINAL DIAGNOSIS A. Skin, Left Upper Back Lateral, shave: - Neurofibroma B. Skin, Right Breast Medial Inferior, shave: - Benign Hemangioma C. Skin, Right Breast Superior, shave: - Neurofibroma 05/31/2025 3:50 PM CDT [facility] DERMATOLOGY at 1550 CDT Clinical Information A: Clinical Impression: 5 mm soft pink papule consistent with irritated nevus B: Clinical Impression: 3 mm red papule consistent with irritated angioma C: Clinical Impression: 5 mm soft pink papule consistent with irritated nevus 05/31/2025 3:50 PM CDT [facility] DERMATOLOGY Microscopic Description Microscopic examination is performed. 05/31/2025 3:50 PM CDT [facility] DERMATOLOGY Technical Information A portion of the technical staining was performed at [facility], [address] [place] [id number]. 05/31/2025 3:50 PM CDT [facility] DERMATOLOGY Gross Description A: Received in [...] in one cassette. TV 05/31/2025 3:50 PM CDT [facility] DERMATOLOGY Embedded Images 05/31/2025 3:50 PM CDT [facility] DERMATOLOGY Skin (Skin) 05/26/2025 11:3 8 [...] soft pink papule consistent with irritated nevus us Ghazal Rowley MD LAB PATHOLOGY F inal Result Performing Organization Address City/State/[facility] Co de Phone Number [facility] [address] DERMATOLOGY [facility] [place] [address], [facility] * MR Angio Neck W/WO IV Cont (04/28/2025 12:07 PM CDT) Anatomical Region Laterality Modality Neck, Vascular, C-Spine, Skeletal Magnetic Resonance 04/28/2025 11:3 3 AM CDT Impressions 05/02/2025 2:34 PM CDT 1. The visualized cervical carotid and vertebral arteries are patent and nonstenotic on the noncontrast images. 2. Postcontrast images are limited due to poor contrast bolus timing. If there is further concern, the patient could return for repeat postcontrast images at no cost. Narrative 05/02/2025 2:34 PM CDT INDICATION: Seeing new flashes, lightening bolts,and dots in left eye TECHNIQUE: Neck MR angiography with and without intravenous contrast. Contrast dose: 7 mL GADOBUTROL 1 MMOL/ML IV SOLN. COMPARISON: None. FINDINGS: Postcontrast images are limited due to poor contrast bolus timing. Right Neck: The visualized cervical carotid and vertebral arteries appear patent and nonstenotic on the noncontrast images. Postcontrast images are limited due to poor contrast bolus timing. Left Neck: The visualized cervical carotid and vertebral arteries are patent and nonstenotic on the noncontrast images. Postcontrast images are limited due to poor contrast bolus timing. Procedure Note Tien Manley MD - 05/02/2025 INDICATION: Seeing new flashes, lightening bolts,and dots in left eye TECHNIQUE: Neck MR angiography with and without intravenous contrast.Contrast dose: 7 mL GADOBUTROL 1 MMOL/ML IV SOLN. COMPARISON: None. FINDINGS: Postcontrast images are limited due to poor contrast bolus timing. Right Neck: The visualized cervical carotid and vertebral arteries appearpatent and nonstenotic on the noncontrast images. Postcontrast images arelimited due to poor contrast bolus timing. Left Neck: The visualized cervical carotid and vertebral arteries arepatent and nonstenotic on the noncontrast images. Postcontrast images arelimited due to poor contrast bolus timing. IMPRESSION 1. The visualized cervical carotid and vertebral arteries are patent andnonstenotic on the noncontrast images. 2. Postcontrast images are limited due to poor contrast bolus timing. Ifthere is further concern, the patient could return for repeat postcontrastimages at no cost. us Dilcia Akins APRN, [employer] RAD MRI Final Re sult * MR Brain W/WO IV Cont (04/28/2025 12:06 PM CDT) Anatomical Region Laterality Modality Head Magnetic Resonan ce 04/28/2025 11:1 9 AM CDT Impressions 05/02/2025 2:28 PM CDT 1. No acute intracranial pathology. 2. Mild chronic small vessel ischemic changes and minimal volume loss. Narrative 05/02/2025 2:28 PM CDT INDICATION: Unilateral vision changes, hypertension, similar to how her mom presented with stroke. TECHNIQUE: MRI of the head with and without contrast using tumor protocol, 7 mL GADOBUTROL 1 MMOL/ML IV SOLN. COMPARISON: None. FINDINGS: No acute infarct. Mild chronic small vessel ischemic changes in the cerebral white matter. Minimal volume loss. Normal flow voids within the major intracranial vessels. Normal enhancement. Paranasal sinuses and mastoid air cells are relatively clear. No suspicious osseous lesion. Procedure Note Tien Manley MD - 05/02/2025 INDICATION: Unilateral vision changes, hypertension, similar to how ranjit presented with stroke. TECHNIQUE: MRI of the head with and without contrast using tumorprotocol, 7 mL GADOBUTROL 1 MMOL/ML IV SOLN. COMPARISON: None. FINDINGS: No acute infarct. Mild chronic small vessel ischemic changes inthe cerebral white matter. Minimal volume loss. Normal flow voids withinthe major intracranial vessels. Normal enhancement. Paranasal sinuses andmastoid air cells are relatively clear. No suspicious osseous lesion. IMPRESSION 1. No acute intracranial pathology. 2. Mild chronic small vessel ischemic changes and minimal volume loss. Dilcia Akins APRN, DARÍO RAD MRI Final Re sult * MR Angio Head WO IV Cont (04/28/2025 11:19 AM CDT) Anatomical Region Laterality Modality Head, Vascular Magnetic Resonan ce 04/28/2025 10:4 9 AM CDT Impressions 05/02/2025 2:16 PM CDT No occlusion, stenosis, or aneurysm. Narrative 05/02/2025 2:16 PM CDT INDICATION: Seeing new flashes, lightening bolts,and dots in left eye TECHNIQUE: Obom-af-vbeldb MRA of the [place]. COMPARISON: None. FINDINGS: Distal internal carotid arteries: Patent and nonstenotic. Anterior cerebral arteries: Patent and nonstenotic. Middle cerebral arteries: Patent and nonstenotic. Posterior cerebral arteries: Patent and nonstenotic. Vertebrobasilar system: Patent and nonstenotic. Procedure Note Tien Manley MD - 05/02/2025 INDICATION: Seeing new flashes, lightening bolts,and dots in left eye TECHNIQUE: Ydqz-ir-fbaeaf MRA of the [place]. COMPARISON: None. FINDINGS: Distal internal carotid arteries: Patent and nonstenotic. Anterior cerebral arteries: Patent and nonstenotic. Middle cerebral arteries: Patent and nonstenotic. Posterior cerebral arteries: Patent and nonstenotic. Vertebrobasilar system: Patent and nonstenotic. IMPRESSION No occlusion, stenosis, or aneurysm. Dilcia Akins APRN, DARÍO RAD MRI Final Re sult * Surgical Path - GI (04/20/2025 11:21 AM CDT) Case Report Surgical Pathology Case: [id number] Authorizing Provider: Jinny Nelson MD Collected: 04/20/2025 1121 Ordering Location: Endoscopy at [facility] Received: 04/20/2025 1133 Specialty Center at [facility] [address] Pathologist: Maryan Bailey MD Specimens: A) - Colon, random B) - Colon, ascending C) - Colon, sigmoid 05/02/2025 2:18 PM CDT [facility] FINAL DIAGNOSIS A. Colon, random, biopsy: Serrated polyp, favor sessile serrated adenoma Focal architectural changes suggestive of chronicity Negative for microscopic colitis and negative for active colitis B. Colon, ascending, polypectomy: Tubular adenoma fragments C. Colon, sigmoid, polypectomy: No diagnostic abnormality 05/02/2025 2:18 PM CDT [facility] at 1418 CDT Clinical Information Polyp of colon, unspecified part of colon, unspecified type 05/02/2025 2:18 PM CDT [facility] Microscopic Description Microscopic examination is performed. 05/02/2025 2:18 PM CDT [facility] Gross Description A: The specimen is received in formalin and labeled with the patient's name and Colon, random. The specimen consists of multiple fuentes-white irregular soft tissue fragments, ranging from 0.1 cm up to 0.3 cm. The specimen is filtered and entirely submitted in one cassette. B: The specimen is received in formalin and labeled with the patient's name and Colon, ascending. The specimen consists of 4 fuentes-white irregular soft tissue fragments, ranging from 0.1 cm up to 0.5 cm. The specimen is filtered and entirely submitted in one cassette. C: The specimen is received in formalin and labeled with the patient's name and Colon, sigmoid. The specimen consists of a 0.3 cm fuentes-white irregular shaped soft tissue fragment. The specimen is filtered and entirely submitted in one cassette. DJ 05/02/2025 2:18 PM CDT [facility] Embedded Images 05/02/2025 2:18 PM CDT [facility] Tissue COLON STRUCTURE / Unknown 04/20/2025 11:21 AM CDT 04/20/2025 11:33 AM CDT Tissue specimen (specimen) COLON STRUCTURE / Unknown 04/20/2025 11:21 AM CDT 04/20/2025 11:33 AM CDT Tissue specimen (specimen) COLON STRUCTURE / Unknown 04/20/2025 11:22 AM CDT 04/20/2025 11:33 AM CDT us Jinny Dumont MD LAB PATHOLOGY Final Res ult [facility] [address] [employer] [address] * Colonoscopy Screening (04/20/2025 10:29 AM CDT) Anatomical Region Laterality Modality Other 04/20/2025 10:2 9 AM CDT Narrative 04/20/2025 10:29 AM CDT Patient Name: Eddie Johnson Procedure Date: 04/20/2025 10:29 AM Date of : 1960 Admit Type: Outpatient Age: 64 Gender: Female Note Status: Finalized Attending MD: Jinny Lambert MD, Procedure: Colonoscopy Indications: High risk colon cancer surveillance: Personal history of adenomatous colonic polyps, Last colonoscopy: January 2022, Incidental - Chronic diarrhea/prior collagenous colitis Providers: Jinny Lambert MD, Jimena Galeana RN Patient Profile: This is a 64 year old female. Referring MD: Jinny Lambert MD Medicines: Propofol per anesthesia, CO2 insufflation Complications: No immediate complications. Estimated blood loss: None. Procedure: After I obtained informed consent, the scope was passed under direct vision. Throughout the procedure, the patient's blood pressure, pulse, and oxygen saturations were monitored continuously. The [id number] was introduced through the anus and advanced to 1 cm into the ileum. The colonoscopy was technically difficult and complex due to multiple diverticula in the colon, restricted mobility of the colon, significant looping and a tortuous colon. Successful completion of the procedure was aided by changing the patient to a supine position to traverse sigmoid, changing the patient to a prone position to advance scope to cecum, using manual pressure, withdrawing and reinserting the scope and receiving assistance from additional staff TK. The patient tolerated the procedure fairly well. The quality of the bowel preparation was good. This procedure was unusual compared to a typical procedure, requiring substantially greater intensity of mental effort, physical effort and technical skill. The procedure duration was 30 minutes longer than usual. Findings: A 10 mm polyp was found in the ascending colon. The polyp was sessile. The polyp was removed with a cold snare. Resection and retrieval were complete. A 2 mm polyp was found in the sigmoid colon. The polyp was sessile. The polyp was removed with a cold biopsy forceps. Resection and retrieval were complete. Multiple large-mouthed, medium-mouthed and small-mouthed diverticula were found in the entire colon. The terminal ileum appeared normal. Biopsies for histology were taken with a cold forceps from the entire colon for evaluation of microscopic colitis. Retroflexion in the right colon was performed. Impression: - One 10 mm polyp in the ascending colon, removed with a cold snare. Resected and retrieved. - One 2 mm polyp in the sigmoid colon, removed with a cold biopsy forceps. Resected and retrieved. - Diverticulosis in the entire examined colon, severe diverticulosis of the sigmoid colon. - The examined portion of the ileum was normal. - Biopsies were taken with a cold forceps from the entire colon for evaluation of microscopic colitis. Recommendation: - Await pathology results. - Repeat colonoscopy in 3 years for surveillance based on pathology results. Use upper endoscope for future colonoscopies - Return to GI clinic as previously scheduled for further recommendations and follow up plan. - No NSAIDs (such as ibuprofen, Aleve, Naproxen, etc.) for 7 days. Tylenol is okay. Procedure Code(s): --- Professional --- 47448, 22, Colonoscopy, flexible; with removal of tumor(s), polyp(s), or other lesion(s) by snare technique 74284, 59, Colonoscopy, flexible; with biopsy, single or multiple Diagnosis Code(s): --- Professional --- Z86.0101, Personal history of adenomatous and serrated colon polyps D12.2, Benign neoplasm of ascending colon D12.5, Benign neoplasm of sigmoid colon K57.30, Diverticulosis of large intestine without perforation or abscess without bleeding CPT copyright 2022 [employer]. All rights reserved. The codes documented in this report are preliminary and upon senior wind turbine technician review may be revised to meet current compliance requirements. Jinny Lambert MD 04/20/2025 11:29:46 AM This document has been electronically signed. Number of Addenda: 0 Note Initiated On: 04/20/2025 10:29 AM Endoscopy Report Procedure Note Jinny Nelson MD - 04/20/2025 Patient Name: Eddie Johnson Procedure Date: 04/20/2025 10:29 AM Date of : 1960 Admit Type: Outpatient Age: 64 Gender: Female Note Status: Finalized Attending MD: Jinny Lambert MD, Procedure: Colonoscopy Indications: High risk colon cancer surveillance: Personal history of adenomatous colonic polyps, Last colonoscopy: January 2022, Incidental - Chronic diarrhea/prior collagenous colitis Providers: Jinny Lambert MD, Jimena Galeana RN Patient Profile: This is a 64 year old female. Referring MD: Jinny Lambert MD Medicines: Propofol per anesthesia, CO2 insufflation Complications: No immediate complications. Estimated blood loss: None. Procedure: After I obtained informed consent, the scope was passed under direct vision. Throughout the procedure, the patient's blood pressure, pulse, and oxygen saturations were monitored continuously. The [id number] was introduced through the anus and advanced to 1 cm into the ileum. The colonoscopy was technically difficult and complex due to multiple diverticula in the colon, restricted mobility of the colon, significant looping and a tortuous colon. Successful completion of the procedure was aided by changing the patient to a supine position to traverse sigmoid, changing the patient to a prone position to advance scope to cecum, using manual pressure, withdrawing and reinserting the scope and receiving assistance from additional staff TK. The patient tolerated the procedure fairly well. The quality of the bowel preparation was good. This procedure was unusual compared to a typical procedure, requiring substantially greater intensity of mental effort, physical effort and technical skill. The procedure duration was 30 minutes longer than usual. Findings: A 10 mm polyp was found in the ascending colon. The polyp was sessile. The polyp was removed with a cold snare. Resection and retrieval were complete. A 2 mm polyp was found in the sigmoid colon. The polyp was sessile. The polyp was removed with a cold biopsy forceps. Resection and retrieval were complete. Multiple large-mouthed, medium-mouthed and small-mouthed diverticula were found in the entire colon. The terminal ileum appeared normal. Biopsies for histology were taken with a cold forceps from the entire colon for evaluation of microscopic colitis. Retroflexion in the right colon was performed. Impression: - One 10 mm polyp in the ascending colon, removed with a cold snare. Resected and retrieved. - One 2 mm polyp in the sigmoid colon, removed with a cold biopsy forceps. Resected and retrieved. - Diverticulosis in the entire examined colon, severe diverticulosis of the sigmoid colon. - The examined portion of the ileum was normal. - Biopsies were taken with a cold forceps from the entire colon for evaluation of microscopic colitis. Recommendation: - Await pathology results. - Repeat colonoscopy in 3 years for surveillance based on pathology results. Use upper endoscope for future colonoscopies - Return to GI clinic as previously scheduled for further recommendations and follow up plan. - No NSAIDs (such as ibuprofen, Aleve, Naproxen, etc.) for 7 days. Tylenol is okay. Procedure Code(s): --- Professional --- 57004, 22, Colonoscopy, flexible; with removal of tumor(s), polyp(s), or other lesion(s) by snare technique 35942, 59, Colonoscopy, flexible; with biopsy, single or multiple Diagnosis Code(s): --- Professional --- Z86.0101, Personal history of adenomatous and serrated colon polyps D12.2, Benign neoplasm of ascending colon D12.5, Benign neoplasm of sigmoid colon K57.30, Diverticulosis of large intestine without perforation or abscess without bleeding CPT copyright 2022 [employer]. All rights reserved. The codes documented in this report are preliminary and upon senior wind turbine technician review may be revised to meet current compliance requirements. Jinny Lambert MD 04/20/2025 11:29:46 AM This document has been electronically signed. Number of Addenda: 0 Note Initiated On: 04/20/2025 10:29 AM Endoscopy Report us Jinny Dumont MD ET GI PROCEDURE ORDERABLE S Final Result * MM Mammogram Screening Bilat W Implants W 3D Yousuf W CAD (05/26/2024 10:46 AM CDT) Anatomical Region Laterality Modality Breast Bilateral Mammography Impressions 05/26/2024 11:06 AM CDT : ACR BI-RADS Category 2: Benign RECOMMENDATION: Follow Up Imaging in 12 months - Bilateral The results and recommendations of this examination will be communicated to the patient. Narrative 05/26/2024 11:06 AM CDT MM MAMMOGRAM SCREENING BILAT W IMPLANTS W 3D YOUSUF W CAD performed on 05/26/24 Compared to: 12/06/2022 MM Mammogram Screening Bilat W Implants W 3D Yousuf W CAD, 08/15/2021 MM Mammogram Screening Bilat W Implants W 3D Yousuf W CAD, and 07/25/2020 MM Mammogram Screening Bilat W Implants W 3D Yousuf W CAD FINDINGS: Bilateral screening mammogram was performed with the assistance of Computer-Aided Detection and breast tomosynthesis. The breasts are heterogeneously dense, which may obscure small masses. There are breast conservation changes on the right. There are findings of breast augmentation. There is no radiographic evidence of malignancy. us Dilcia Akins APRN, CNP RAD ROLF Final Re sult * PAP Test (06/25/2019 8:21 AM CDT) Case Report Pap Case: [id number] Authorizing Provider: Dilcia Akins APRN, CNP Collected: 06/25/2019 08:21 AM Ordering Location: [facility] Received: 06/25/2019 01:34 PM Medicine First Screen: Aura Marshall Specimen: Pap Test, Routine, Cervix/Endocervix 06/30/2019 2:50 PM CDT [facility] Pap Specimen Adequacy Satisfactory for evaluation, endocervical/adam sformation zone component absent. 06/30/2019 2:50 PM CDT [facility] Pap Interpretation Negative for intraepithelial lesion or malignancy (NILM). 06/30/2019 2:50 PM CDT [facility] at 1450 CDT Gross Description The specimen is received in SurePath fixative and properly labeled. 1 Pap-stained SurePath slide is prepared. 06/30/2019 2:50 PM CDT [facility] Pap Disclaimer The Pap test is a screening test designed to aid in the detection of cervical cancer and its precursor lesions. It is not a diagnostic procedure and should not be used as the sole means of detecting cervical cancer. Both false-positive and false-negative reports may occur. 06/30/2019 2:50 PM CDT [facility] Embedded Images 9 2:50 PM CDT [facility] Other Specimen Type ENTIRE ENDOCERVIX / Unknown 06/25/2019 8:21 AM CDT 06/25/2019 1:34 PM CDT Comment:LMP: No LMP recorded . Patient has had a hysterectomy. us Dilcia Akins APRN, [facility] Final Re sult Performing Organization Address City/[facility]/ZIP Co de Phone Number [facility] [address], [place] [phone] [place] [address] * (ABNORMAL) Lipid Panel - LDLD If Trig High (06/25/2019 8:14 AM CDT) Cholesterol 201(H) 0 - 199 mg/dL 06/25/2019 10:23 AM CDT [facility] Triglyceride 62 <=149 mg/dL 06/25/2019 10:23 AM CDT [facility] HDL Cholesterol 76 >=40 mg/dL 06/25/2019 10:23 AM CDT [facility] LDL, Calculated 113 <130 mg/dL 06/25/2019 10:23 AM CDT [facility] Non HDL Chol, Calculated 125 <=159 mg/dL 06/25/2019 10:23 AM CDT [facility] Cholesterol/HDL Ratio 2.6 06/25/2019 10:23 AM CDT [facility] Hours Fasting 12 06/25/2019 10:23 AM CDT [facility] ([place]) Blood Venipuncture / Unknown 06/25/2019 8:14 AM CDT 06/25/2019 8:14 AM CDT Dilcia Akins APRN, CNP LAB_1 Final Re sult Performing Organization Address City/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
== END 2025-06-22 17:00 | disposition home or self-care (01) ==
PROVIDERS: Emergency Provider Student in an Organized Health Care Education/Training Program
DX: S39.012A Strain of muscle, fascia and tendon of lower back, initial encounter (principal)
CPT/HCPCS: 99283